=== PATIENT | male | born 1995 ===

== ENCOUNTER 2018-07-19 12:47 | Emergency (ER) | payer OTHER ==
--- NOTE | 2018-07-19 13:31 | EDM.PDOC ---
ED HPI GENERAL MEDICAL PROBLEM - General Chief Complaint: Lower Extremity Injury/Pain Stated Complaint: SWOLLEN LEFT KNEE Time Seen by Provider: 07/19/18 12:59 Source of Information: Reports: Patient, RN Notes Reviewed History Limitations: Reports: No Limitations - History of Present Illness INITIAL COMMENTS - FREE TEXT/NARRATIVE: The patient states that he [place] [employer] [place], [place]. He states that he was attempting a jump, that he missed it , planting his left foot, but with his momentum still moving forward. He states that his left knee moved both valgus and varus before he fell, but he did not strike his knee. He states that he had left knee pain almost immediately, and that it was painful for him to bear weight and move his knee. He developed swelling to the left knee about one hour later, which is worse today. The patient is otherwise uninjured. The patient has a history of a prior left ACL tear, which was repaired arthroscopically in 2012 or 2013 in [place]. The patient does not have a PCP. 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 [No Known Home Meds] 07/19/18 [History] Past Medical History - Past Surgical History Musculoskeletal Surgical History: Reports: Arthroscopic Knee (left ACL repair 2012 or 2013) Other Musculoskeletal Surgeries/Procedures:: ACL tear Social & Family History - Tobacco Use Smoking Status *Q: Current Every Day Smoker Years of Tobacco use: 4 Packs/Tins Daily: 0.1 - Caffeine Use Caffeine Use: Reports: Coffee, Energy Drinks, Soda - Alcohol Use Alcohol Use History: Yes Alcohol Use Frequency: Socially - Recreational Drug Use Recreational Drug Use: Yes Drug Use in Last 12 Months: Yes Recreational Drug Type: Reports: Marijuana/Hashish (smokes on occasion) - Living Situation & Occupation Living situation: Reports: Single, with Significant Other (Girlfriend) Occupation: Employed ([employer]) Review of Systems - Review of Systems Review Of Systems: ROS reveals no pertinent complaints other than HPI. ED EXAM, GENERAL - Physical Exam Exam: See Below Exam Limited By: No Limitations General Appearance: Alert, WD/WN, No Apparent Distress Extremities: No Pedal Edema, Normal Capillary Refill, Other (Likely mild left knee effusion. No tenderness to palpation of the anterior, lateral, or medial knee. No pain with the knee in full extension, however, pain is induced with flexion approaching 70. No pain induced or laxity found with stressing either the medial or lateral collateral ligaments. Anterior and posterior drawer signs absent. Bob test induces pain in the knee, although no click felt. Apley test present. Neurovascular status of the left lower extremity is intact.) Course - Vital Signs Last Recorded V/S: Last Vital Signs Temp 36.6 C 07/19/18 12:56 Pulse 60 07/19/18 12:56 Resp 18 07/19/18 12:56 BP 130/81 07/19/18 12:56 Pulse Ox 99 07/19/18 12:56 - Orders/Labs/Meds Orders: Active Orders 24 hr Category Date Time Status Knee Min 4V Lt [CR] Stat Exams 07/19/18 13:28 Taken - Re-Assessments/Exams Free Text/Narrative Re-Assessment/Exam: 07/19/18 13:30 Clinically, I suspect that the patient has a meniscal injury. I have ordered x- rays of his left knee, which I expect to be negative. I will then fit the patient for crutches and have him follow-up with Ortho. 07/19/18 13:49 4-view radiographs of the left knee appear to demonstrate an increased joint space, consistent with a knee effusion. No fractures or dislocations identified. Prior ACL repair hardware incidentally noted. Formal read per the Radiologist pending. 07/19/18 13:56 X-ray results discussed with the patient and his girlfriend. As above, I suspect that the patient has a meniscal injury. The patient brought his own crutches - a lot of the nurse make sure that they are fit properly and discussed with him how to properly use them. I will discharge him home with the recommendation that he ice his left knee is much as possible over the next couple of days, and take ibuprofen as needed for discomfort. He can follow-up with Ortho. Departure - Departure Time of Disposition: 13:57 Disposition: Home, Self-Care 01 Condition: Good Clinical Impression: Internal derangement of left knee - Discharge Information *PRESCRIPTION DRUG MONITORING PROGRAM REVIEWED*: Not Applicable *COPY OF PRESCRIPTION DRUG MONITORING REPORT IN PATIENT DENISE: Not Applicable Referrals: Mani Sun MD [Physician] - Forms: ED Department Discharge, ED Return to Work/School Form Additional Instructions: You were seen in the emergency room after injuring your left knee while skateboarding. Workup in the ER included x-rays of your left knee, which appear to show an effusion, but no broken bones or dislocations. Based on your history, physical exam, and ER x-rays, you have likely injured your left knee meniscus. Your crutches have been fitted. Use your crutches for all ambulation. Ice your left knee as much as possible, for about 48 hours. Take [id number] ibuprofen, 2-3 tablets (400-600 mg) every 8 hours, with food, as needed for discomfort. Follow-up with the Orthopedic Surgeon Dr. Mani Sun, at the next available appointment, for further evaluation. If any other problems, please do not hesitate to return to the ER. - My Orders Last 24 Hours: My Active Orders 07/19/18 13:28 Knee Min 4V Lt [CR] Stat - Assessment/Plan Last 24 Hours: My Active Orders 07/19/18 13:28 Knee Min 4V Lt [CR] Stat
--- NOTE | 2018-07-21 10:51 | CR ---
Left knee: Four views of the left knee were obtained. Comparison: No previous knee exam. Previous ACL repair is noted. Joint effusion is seen. Medial and lateral joint compartments are maintained in height. No acute fracture or other bony abnormality is seen. Impression: 1. Prior ACL repair. 2. Joint effusion. Diagnostic code #3
== END 2018-07-19 14:20 | disposition home or self-care (01) ==
LOC: JD.ED 12:47
DX: S89.92XA Unspecified injury of left lower leg, initial encounter (principal); F17.210 Nicotine dependence, cigarettes, uncomplicated; V00.131A Fall from skateboard, initial encounter
CPT/HCPCS: 73564-26-LT; 73564-LT; 99283; 99283-25